=== PATIENT | male | born 1970 | race Caucasian/White ===

== ENCOUNTER → 2020-04-13 14:12 | Outpatient (CLI) | payer BC, SELFPAY ==
--- NOTE | ~2020-04-13 | CT_ITS ---
EXAMINATION: CT abdomen pelvis w con INDICATION: Generalized abdominal pain, gas, bloating, abdominal cramping TECHNIQUE: Computed tomographic images of the abdomen and pelvis were obtained after the administrati on of 100 cc of Omnipaque 350 intravenous contrast. The dose-length product (DLP) was 1158.55 mGy-cm. Automated exposure control and iterative reconstruction technique were employed. COMPARISON: None available FINDINGS: Minimal dependent atelectasis is present in the lung bases. The heart size is normal. There is a small sliding hiatal hernia. The liver is diffusely low in attenuation when compared with the s pleen, consistent with hepatic steatosis. The spleen, pancreas, gallbladder, and adrenal glands are n ormal. Cysts of the kidneys measure up to 6 mm on the right. No pathologically enlarged abdominal or pelvic lymph nodes are identified. There is no free intraperitoneal gas or evidence of bowel obstruct ion. The appendix is normal. There are umbilical and bilateral inguinal hernias containing fat. There is mild lumbar spondylosis. IMPRESSION: 1. No CT correlate for the patient's symptoms. 2. Diffuse hepatic steatosis. Reviewed, dictated and finalized at location A. MACHINE OPERATOR
== END ==
PROVIDERS: PCP Physician Assistant; Visit Provider Physician Assistant
DX: R10.84 Generalized abdominal pain (principal); K76.0 Fatty (change of) liver, not elsewhere classified
CPT/HCPCS: 74177; Q9967

== ENCOUNTER 2020-05-12 07:44 | Outpatient (CLI) | payer BC, SELFPAY ==
--- NOTE | ~2020-05-12 | XR_ITS ---
EXAMINATION: XR UGIAC w small bowel DATE: 05/12/2020 13:08 INDICATION: Upper abdominal pain with extreme gas and cramping TECHNIQUE: The patient drank thick barium, gas-producing crystals, and thin barium. Conventional supi ne abdomen radiographs and fluoroscopy of the esophagus, stomach, and small bowel were performed. Flu oroscopy exposure time was 4.6 minutes. The DAP for this procedure was 169.29 Gycm2. COMPARISON: None. FINDINGS: UPPER GASTROINTESTINAL SERIES: There is no mass or stricture of the esophagus. Esophageal motility is normal. There is a small slidi ng hiatal hernia. There was a moderate to large amount of spontaneous gastroesophageal reflux. The st omach shows a normal folding pattern. SMALL BOWEL SERIES: Transit time from the stomach to proximal colon was approximately two hours. There is normal caliber and mucosal fold pattern throughout the small bowel. Terminal ileum is normal. No tethering or abno rmal mass effect observed upon the small bowel with real-time fluoroscopy. IMPRESSION: 1. Moderate to large amount spontaneous gastroesophageal reflux. 2. Small sliding hiatal hernia. Reviewed, dictated and finalized at location A. ULA WEIGHER
--- NOTE | ~2020-05-12 | NM_ITS ---
NM hepatobiliary w pharm Procedure: Hepatobiliary scan performed following IV administration 4.8 mCi Tc 99m Choletec. At 60 m inutes 2.5 mcg CCK administered IV for evaluation of gallbladder ejection fraction. Indication: Right upper abdominal pain Comparison: CT dated 04/13/2020 Findings: There is normal radiotracer uptake in the liver parenchyma with prompt excretion into the b iliary tract. Gallbladder visualized at 15 minutes. Small bowel visualized at 60 minutes. Gallbla dder ejection fraction measures 23 %. (Normal is considered 10-90%, but most patients with gallbladde r dysfunction have GBEF of less than 35%) Impression: 1: Low gallbladder ejection fraction measuring 23%. Low GBEF is associated with gallbladder dysfunct ion, although not specific for acute or chronic cholecystitis. Reviewed, dictated and finalized at location B. NKLER FITTER APPRENTICE Impression: 1: Low gallbladder ejection fraction measuring 23%. Low GBEF is associated wit h gallbladder dysfunction, although not specific for acute or chronic cholecyst itis.
== END 2020-05-12 07:45 | disposition home or self-care (01) ==
PROVIDERS: PCP Physician Assistant; Visit Provider Physician Assistant
DX: R10.10 Upper abdominal pain, unspecified (principal); K44.9 Diaphragmatic hernia without obstruction or gangrene; K21.9 Gastro-esophageal reflux disease without esophagitis
CPT/HCPCS: 74246; 74248; 78227; A9537; J2805

== ENCOUNTER → 2020-09-21 13:58 | Outpatient (CLI) | payer BC, SELFPAY ==
--- NOTE | ~2020-09-21 | XR_ITS ---
EXAMINATION: XR wrist RT min 3V DATE: 09/21/2020 14:33 INDICATION: Right wrist pain. TECHNIQUE: 4 views of right wrist were obtained. COMPARISON: None. FINDINGS: Bone alignment is normal. No fracture. There is mild osteoarthritis of distal radioulnar hodan int with loose bodies. IMPRESSION: 1. 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 Reviewed, dictated and finalized at location A.
== END ==
PROVIDERS: PCP Orthopaedic Surgery Hand Surgery; Visit Provider Physician Assistant
DX: M19.031 Primary osteoarthritis, right wrist (principal); M24.031 Loose body in right wrist
CPT/HCPCS: 73110

== ENCOUNTER → 2021-10-10 12:32 | Outpatient (CLI) | payer BC, SELFPAY ==
--- NOTE | ~2021-10-10 | XR_ITS ---
XR foot RT min 3V DATE: 10/10/2021 12:58 INDICATION: Right foot pain TECHNIQUE: 4 views COMPARISON: None FINDINGS: Posterior calcaneal enthesopathy. Hammertoe deformities of the second through fifth digits. No fracture, dislocation, periosteal reaction or bone destruction. Mild osteoarthritis at the first metatarsophalangeal joint. IMPRESSION: Posterior calcaneal enthesopathy Mild osteoarthritis at first metatarsophalangeal joint Hammertoe deformities Reviewed, dictated and finalized at location A.
== END ==
PROVIDERS: PCP Physician Assistant; Visit Provider Physician Assistant
DX: M79.671 Pain in right foot (principal); M77.31 Calcaneal spur, right foot; M19.071 Primary osteoarthritis, right ankle and foot; M20.41 Other hammer toe(s) (acquired), right foot
CPT/HCPCS: 73630

== ENCOUNTER 2024-01-20 07:45 | Outpatient (CLI) | payer BC, SELFPAY ==
--- NOTE | ~2024-01-20 | US_ITS ---
EXAM: ABDOMEN ULTRASOUND HISTORY: RUQ pain COMPARISON: Reference is made to a CT examination of the abdomen and pelvis dated 04/13/2020 FINDINGS: LIVER: The liver is increased in echogenicity suggesting fatty infiltration. GALLBLADDER: No stones in the gallbladder. No gallbladder wall thickening or pericholecystic fluid. BILE DUCTS: Common bile duct measures 3.6mm. PANCREAS: Limited evaluation of the pancreas secondary to overlying bowel gas RIGHT KIDNEY: 10.7 cm. In length. No hydronephrosis or bulky renal calculi. VASCULATURE : The abdominal aorta and IVC are poorly visualized secondary to overlying bowel gas. IMPRESSION: Fatty infiltration of the liver. No stones within the gallbladder. Reviewed, dictated and finalized at location A.
== END 2024-01-20 07:46 | disposition home or self-care (01) ==
LOC: MICIMG 07:46
PROVIDERS: PCP Physician Assistant; Visit Provider Physician Assistant
DX: R10.11 Right upper quadrant pain (principal); K76.0 Fatty (change of) liver, not elsewhere classified
CPT/HCPCS: 76705

== ENCOUNTER 2024-02-03 07:31 | Outpatient (CLI) | payer BC, SELFPAY ==
--- NOTE | ~2024-02-03 | NM_ITS ---
EXAMINATION: NM hepatobiliary w pharm DATE: 02/03/2024 09:46 INDICATION: Right abdominal pain. COMPARISON: Hepatobiliary scintigraphy 05/12/2020, ultrasound 01/20/2024 TECHNIQUE: 4.9 mCi Tc-99m mebrofenin (Choletec) was administered intravenously. Scintigraphic images of the abdomen were obtained for one hour. Then, 2.5 mcg sincalide (Kinevac) IV was administered, an d imaging was continued for 30 minutes. FINDINGS: There is normal clearance of radiotracer from the blood pool. There is homogeneous tracer u ptake by the liver. Activity progresses to the bowel and gallbladder. Gallbladder ejection fraction (GBEF) was 20%. Note that most patients with gallbladder dysfunction have GBEF < 35%, which overlaps with the broad normal range of 10-90%. IMPRESSION: 1. Gallbladder ejection fraction in the lower range of normal. Note that this value overlaps with th e range of values that may be seen with gallbladder dysfunction and/or chronic cholecystitis if there is appropriate clinical correlation. Reviewed, dictated and finalized at location A. NG RACK CHANGER IMPRESSION: 1. Gallbladder ejection fraction in the lower range of normal. Note that this value overlaps with the range of values that may be seen with gallbladder dysfu nction and/or chronic cholecystitis if there is appropriate clinical correlatio nMaryjane
== END 2024-02-03 07:32 | disposition home or self-care (01) ==
PROVIDERS: PCP Physician Assistant; Visit Provider Physician Assistant
DX: R10.9 Unspecified abdominal pain (principal)
CPT/HCPCS: 78227; A9537; J2805